=== PATIENT | female | born 1985 | race Caucasian/White ===

== ENCOUNTER 2017-07-08 10:54 | Observation (INO) | payer BC ==
[~2017-07-08] VITALS: Ht 162.6 cm; Wt 74.8 kg
[2017-07-08 11:20] VITALS: BP 143/96; Ht 162.6 cm; Wt 74.8 kg
[2017-07-08 12:08] LABS: PLATELET COUNT, AUTOMATED 182 K/uL (150-450)
--- NOTE | 2017-07-08 13:19 | History & Physical ---
History of Present Illness Age of Patient: 32 : 1 Para or TPAL: 0 EDC per LMP: Jul 31, 2017 Estimated Gestational Age: 36.5 Chief Complaint HYPERTENSION History of Present Illness The patient is a 32 year old 1 para 0 admitted at 36 5/7 weeks estimated gestational age with an estimated date of delivery 07/31/10 . Patient is admitted with complaint of hypertension . No vaginal bleeding. Good movement and occasional contractions. No PIH symptoms. She was evaluated for active labor. She had an uncomplicated course prior to today's blood pressure elevation. Her record was reviewed. History Allergies: Coded Allergies: No Known Drug Allergies (Unverified , 07/08/17) Exam General Exam Cardiovascular: Regular Rate and Rhythm Respiratory: Clear to Auscultation Abdomen: Gravid - Non-Tender Extremities: No Edema Uterine Contractions(Q min): 10 Uterine Contraction Strength: Mild Fetus Heart Tones: 120 FHT Category: I Medical Decision Making Data Points Result Diagram: 07/08/17 1155 07/08/17 1155 Assessment and Plan Problems: (1) Hypertension during Assessment & Plan: Linda denies symptoms of severe preeclampsia, spot check urine suggestive of proteinuria, will check 24 hour urine. will give Celestone for lung maturity as will likely need delivery soon. If symptoms of severe preeclampsia develop will likely need delivery. If preeclampsia confirmed will likely need delivery soon as well. Copies to: BERNIE LUND MD Problem Qualifiers (1) Hypertension during : Pre-existing hypertension in type: unspecified type Trimester: third trimester BERNIE LUND MD Jul 08, 2017 13:18
[2017-07-08] MEDS: BETAMETHASONE/ACETATE 6 MG/1ML IM ONLY SCH (13:44)
[2017-07-08 14:40] VITALS: BP 133/85
[2017-07-08] MEDS ORDERED: PREN-136 (15:27)
[2017-07-08] MEDS ORDERED: CALC-515 PO (15:27)
--- NOTE | 2017-07-08 17:31 | Labor Progress Note ---
Labor Subjective Progress Notes Subjective no headache, vision changes or RUQ pain Feeling Movement?: Yes Labor Pain: Comfortable Neurological: No Headache Eyes: No Visual Disturbances Labor Objective Vital Signs Vital Signs Date Time Temp Pulse Resp B/P (MAP) Pulse Ox O2 Delivery O2 Flow Rate FiO2 07/08/17 14:40 57 133/85 (101) Room Air 07/08/17 11:20 97.7 18 Uterine Contractions(Q min): 20 Uterine Contraction Strength: Mild Fetus Heart Tones: 130 FHT Category: I Other Result Diagram: 07/08/17 1155 07/08/17 1155 Assessment and Plan Problems: (1) Hypertension during Assessment & Plan: no symptoms, BP elevated but not severe, or symptoms of severe preeclampsia. Will recheck labs in am. Problem Qualifiers (1) Hypertension during : Pre-existing hypertension in type: unspecified type Trimester: third trimester BERNIE LUND MD Jul 08, 2017 17:31
[2017-07-08 19:30] VITALS: BP 139/93
[2017-07-09 06:10] LABS: PLATELET COUNT, AUTOMATED 177 K/uL (150-450)
[2017-07-09] MEDS: BETAMETHASONE/ACETATE 6 MG/1ML IM ONLY SCH (13:28)
--- NOTE | 2017-07-09 16:32 | OB/GYN Progress Note ---
OB Subjective Progress Notes Subjective Denies any Headache, visual change, or RUQ pain. Good movement. No contractions. No vaginal bleeding. GI: NEG Nausea, NEG Vomiting, NEG Flatus, NEG Bowel Movement : Voiding Well Pain: Mild, Tolerating PO Pain Meds Neurological: No Headache, No Other Eyes: No Visual Disturbances OB Objective Physical Exam Vital Signs Date Time Temp Pulse Resp B/P (MAP) Pulse Ox O2 Delivery O2 Flow Rate FiO2 07/08/17 19:30 139/93 (108) 07/08/17 14:40 57 Room Air 07/08/17 11:20 97.7 18 Intake and Output 07/10/17 07:00 Intake Total 360 ml Balance 360 ml Intake Oral 360 ml General Appearance: Alert/Awake/No Acute Distress Neurological: No Gross deficits Eyes: Normal Extraocular Movement & Vison, PERRLA ENT: Normal Neck: No Masses Cardiovascular: Normal Rhythm & Peripheral Pulses Respiratory: Clear to Auscultation Extremities: No Edema Psychological: Appropriate Mood & Affect Result Diagram: 07/09/17 0550 07/09/17 1330 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 Recommend delivery at 37 weeks. Pt will schedule IOL for 37-1/7 weeks. Precautions given for Pre- Eclampsia. (3) 36 weeks gestation of Problem Qualifiers (1) Hypertension during : Pre-existing hypertension in type: unspecified type Trimester: third trimester DONTE JOHNSTON DO Jul 09, 2017 16:32
== END 2017-07-09 16:20 | disposition home or self-care (01) ==
LOC: L&D 10:54 → EDSTATUS 11:00 → OB 11:01
PROVIDERS: ADMIT Obstetrics & Gynecology; ATTEND Obstetrics & Gynecology
DX: O13.3 Gestational [pregnancy-induced] hypertension without significant proteinuria, third trimester (principal); O14.93 Unspecified pre-eclampsia, third trimester; Z3A.36 36 weeks gestation of pregnancy
CPT/HCPCS: 36415; 82570; 82575; 83615; 84156; 84550; 85025; 96372; G0378; G0379; J0702; 82040; 82247; 82310; 82374; 82435; 82565; 82947; 84075; 84132; 84155; 84295; 84450; 84460; 84520

== ENCOUNTER 2017-07-10 19:43 | Inpatient (IN) | payer BC ==
[~2017-07-10] VITALS: Ht 162.6 cm; Wt 74.8 kg
[~2017-07-10 19:43] MED LIST: CALC-515 PO; PREN-136
[2017-07-10] MEDS ORDERED: OXYTOCIN 30 UNIT/D5LR 500 ML 500 ML IV PRN (20:01)
[2017-07-10] MEDS ORDERED: FAMOTIDINE(*) 20MG/50ML PREMIX 50 ML IVPB PRN (20:01)
[2017-07-10] MEDS ORDERED: LIDOCAINE/SOD BICARB 8.4% SYR SC PRN (20:05)
[2017-07-10] MEDS ORDERED: ZOLPIDEM TARTRATE 5 MG TAB PO PRN (20:05)
[2017-07-10] MEDS ORDERED: METOCLOPRAMIDE 10 MG/2 ML SDV IVP PRN (20:05)
[2017-07-10] MEDS ORDERED: LIDOCAINE 1% LOCAL 300 MG/30ML INJ PRN (20:05)
[2017-07-10] MEDS ORDERED: cefOXitin/DEX(*) 2GM/50ML PREM 50 ML IVPB PRN (20:05)
[2017-07-10] MEDS ORDERED: fentaNYL CITR 100 MCG/2 ML AMP IVP PRN (20:05)
[2017-07-10] MEDS ORDERED: DINOPROSTONE 10 MG INSERT PV ONE (20:05)
[2017-07-10] MEDS ORDERED: FLUSH 10 ML SYR IVP PRN (20:05)
[2017-07-10 20:29] LABS: PLATELET COUNT, AUTOMATED 164 K/uL (150-450)
[2017-07-10] MEDS ORDERED: ONDANSETRON 4 MG/2 ML VIAL IVP PRN (21:00)
[2017-07-10] MEDS ORDERED: ACETAMINOPHEN 325 MG TAB PO PRN (21:00)
--- NOTE | 2017-07-10 21:38 | History & Physical ---
History of Present Illness Age of Patient: 32 : 1 Para or TPAL: 0 EDC per LMP: Jul 31, 2017 Estimated Gestational Age: 37.0 Chief Complaint Mild preeclampsia History of Present Illness The patient is a 32 year old 1 para 0 admitted at 37.0 weeks estimated gestational age with an estimated date of delivery 07/31/10. Patient is admitted for IOL due to mild preeclampsia diagnosed a few days ago. Mild range pressures without symptoms but significant proteinuria. No vaginal bleeding. Good movement and occasional contractions. She had an uncomplicated course prior to today's blood pressure elevation. Her record was reviewed. Past Medical, Surgical, Family and Obstetric Histories reviewed. Please see AC chart. History Allergies: Coded Allergies: No Known Drug Allergies (Unverified , 07/08/17) Family History: FH: diabetes mellitus Paternal Grandpa (Type 2) Paternal Grandma (Type 2) FH: heart disease Paternal Grandpa (Has had several "heart attacks") FH: hypertension Paternal Grandpa Paternal Grandma No Family History of: FH: asthma FH: stroke Malignant hyperthermia Med Rec Home Meds Reported Medications Vit W-Ca,Fe,FA(<1 mg) ( Vitamins) 1 Each Tablet 07/08/17 Calcium Carbonate (TUMS) 200 Mg Tab.chew, 200 MG PO, TAB.CHEW 07/08/17 Review of Systems All Systems Reviewed/Normal: Yes, Except as Noted Exam General Exam General Apperance: Alert/Awake/No Acute Distress Neuro: No Gross deficits Cardiovascular: Regular Rate and Rhythm Respiratory: No Respiratory Distress Abdomen: Soft, Non-Tender, Non-Distended Integumentary: Skin Intact without Lesions or Rash Psychological: Alert & Oriented X3, Appropriate Mood & Affect Cervical Dialation: 1 Cervical Effacement (%): 50 Cervical Consistency: Firm Cervical Position: Posterior Fetus Heart Tone Variabilty: Moderate FHT Accelerations: 15X15 FHT Category: I Medical Decision Making Data Points Result Diagram: 07/10/17201907/10/172019 VTE Prophylasis: Adult Pharmacological Contraindicati: Pt at Low Risk for VTE Mechanical Contraindications: Pt at Low Risk for VTE 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 Reviewed with pt that we may need additional work after this round, perhaps a silva bulb or cytotec. All will depend on cervical condition in the AM. LIBRADO RANDHAWA MD Jul 10, 2017 21:38
[2017-07-11] MEDS ORDERED: FLUSH 10 ML SYR IVP SCH (01:00)
[2017-07-11] MEDS ORDERED: PENICILLIN G 5 MILLUN/100 ML 100 ML ONE (02:47)
[2017-07-11] MEDS ORDERED: LR(*) 1000 ML BAG 1,000 ML ONE ×2 (02:54→07:12)
[2017-07-11] MEDS ORDERED: hydrALAZINE HCL 20 MG/ML VIAL IVP PRN (03:00)
[2017-07-11] MEDS ORDERED: LABETALOL HCL 20 MG/4 ML SYR IVP PRN (03:00)
[2017-07-11] MEDS ORDERED: LABETALOL HCL 100 MG/20ML VIAL ONE (03:04)
[2017-07-11] MEDS: PENICILLIN G 2.5 MILLUN/100 ML 100 ML IVPB SCH ×2 (08:16→22:49)
[2017-07-11 08:21] LABS: PLATELET COUNT, AUTOMATED 155 K/uL (150-450)
--- NOTE | 2017-07-11 08:35 | Labor Progress Note ---
Labor Subjective Progress Notes Subjective Doing good this morning. Reports feeling occasional contractions. No bleeding or spotting. No headaches or visual changes. Good movement. Feeling Movement?: Yes Vaginal Discharge/Fluid: No Bloody Show, No Clear Fluid, No Bloody Fluid, No Green Tinged Fluid, No Dark Green Fluid, No Mucous, No Small Amount, No Moderate Amount, No Large Amount, No Other Labor Pain: Mild Neurological: No Headache, No Other Eyes: No Visual Disturbances Labor Objective Cervical Dialation: 1 Cervical Effacement (%): 50 Cervical Consistency: Moderate Cervical Position: Mid Station: -2 Presentation: Vertex Uterine Contractions(Q min): 10 Uterine Contraction Strength: Mild UC Resting Tone: Soft Fetus Estimated Weight(grams): 3200 Heart Tones: 135 Heart Tone Variabilty: Moderate FHT Accelerations: 15X15 FHT Decelerations: None FHT Category: I Other Result Diagram: 07/10/17201907/11/17 0805 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 No severe features. Blood pressures remain elevated but no anti-hypertensives given. DONTE JOHNSTON DO Jul 11, 2017 08:35
[2017-07-11] MEDS ORDERED: MISOPROSTOL 25 MCG CAP PV ONE (09:00)
[2017-07-11] MEDS ORDERED: ePHEDrine 25 MG/5 ML DISP.SYR IVP PRN (13:05)
[2017-07-11] MEDS ORDERED: EPIDURAL KEYS XX PRN (13:05)
[2017-07-11] MEDS ORDERED: LIDOCAINE/PF 2% 200MG/10ML AMP 200 MG/10 ML AMPUL EPI PRN (13:05)
[2017-07-11] MEDS ORDERED: LIDO/EPI 2% MPF 1:200,000 20ML EPI PRN (13:05)
[2017-07-11] MEDS ORDERED: BUPIVACAINE 0.5% INJ 30ML VIAL EPI PRN (13:05)
[2017-07-11] MEDS ORDERED: BUPIVACAINE 0.25% MPF INJ EPI PRN (13:05)
[2017-07-11] MEDS ORDERED: fentaNYL CITR 100 MCG/2 ML AMP IT PRN (13:05)
[2017-07-11] MEDS ORDERED: FENTANYL/ROPIVACAINE 100 ML BAG EPI PRN (13:05)
[2017-07-11] MEDS ORDERED: OXYTOCIN 30 UNIT/D5LR 500 ML 500 ML IV PRN (14:03)
[2017-07-11] MEDS: LABETALOL HCL 100 MG/20ML VIAL IVP PRN ×2 (15:23→15:42)
[2017-07-11] MEDS ORDERED: MAGNESIUM SUL* 4 GM/100 ML BAG 100 ML IVPB ONE (16:13)
[2017-07-11] MEDS: MAGNESIUM SULF 20 GM/500 ML IV 500 ML IV SCH (17:00)
[2017-07-11] MEDS ORDERED: LABETALOL HCL 100 MG/20ML VIAL IVP PRN (17:45)
[2017-07-11] MEDS: LR(*) 1000 ML BAG 1,000 ML IV PRN ×2 (18:20→23:25)
--- NOTE | 2017-07-11 18:22 | Labor Progress Note ---
Labor Subjective Progress Notes Subjective Not feeling much for contraction pains. Still denies any headaches or visual changes. Not enjoying how the magnesium is making her feel. Denies any shortness of breath or chest pain. Feeling Movement?: Yes Vaginal Discharge/Fluid: Bloody Show Labor Pain: Mild Neurological: No Headache, No Other Eyes: No Visual Disturbances Labor Objective Vaginal Discharge/Fluid?: Bloody Show Cervical Dialation: 2 Cervical Effacement (%): 50 Cervical Consistency: Moderate Cervical Position: Mid Station: -2 Presentation: Vertex (cervical ripening balloon placed with 80 cc in vaginal and uterine bubs) Uterine Contractions(Q min): 2 Uterine Contraction Strength: Moderate UC Resting Tone: Soft Fetus Heart Tones: 120 Heart Tone Variabilty: Moderate FHT Accelerations: 15X15 FHT Decelerations: None FHT Category: I General Exam General Appearance: Alert/Awake/No Acute Distress ENT: Normal Extremities: Reflexes (2/4) Other Result Diagram: 07/11/17 0807/11/17804 Assessment and Plan 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 Pt has received a total of 120 mg of Labetalol (20,40,40,20). Currently on magnesium sulfate 2gm/hr after a 4 gm bolus. Pt has received Cervidil overnight followed by 25 mcg of cytotec vaginally. No cervical change after both treatments. Pt had Cervical ripening balloon at 1800 with 80 cc in both balloons. Pt is getting an epidural at this time for pain control. Expect balloon to come out in the next few hours. Plan for amniotomy at that time. Continue oxytocin with balloon, with hold at 14 m/U/min. DONTE JOHNSTON DO Jul 11, 2017 18:22
[2017-07-11] MEDS ORDERED: CALCIUM GLUC 10% 100 MG/ML VL IVP PRN (20:00)
--- NOTE | 2017-07-11 20:45 | Labor Progress Note ---
Labor Subjective Progress Notes Subjective Feeling much better after the epidural. Still denies any headaches or visual changes. Feeling Movement?: Yes Vaginal Discharge/Fluid: Bloody Show Labor Pain: Mild Neurological: No Headache, No Other Eyes: No Visual Disturbances Labor Objective Vaginal Discharge/Fluid?: Bloody Show Cervical Dialation: 5 Cervical Effacement (%): 60 Cervical Consistency: Moderate Cervical Position: Mid Station: -2 Presentation: Vertex Uterine Contractions(Q min): 3 Uterine Contraction Strength: Moderate UC Resting Tone: Soft Fetus Heart Tones: 115 Heart Tone Variabilty: Moderate FHT Accelerations: 15X15 FHT Decelerations: None FHT Category: I General Exam General Appearance: Alert/Awake/No Acute Distress ENT: Normal Abdomen: Soft, Non-Tender, Non-Distended : Normal Musculoskeletal: No Weakness/Pain Extremities: Reflexes (2/4) Psychological: Alert & Oriented X3, Appropriate Mood & Affect Other Result Diagram: 07/11/1780407/11/17804 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 Pt has received a total of 120 mg of Labetalol (20,40,40,20). Currently on magnesium sulfate 2gm/hr after a 4 gm bolus. Pt has received Cervidil overnight followed by 25 mcg of cytotec vaginally. No cervical change after both treatments. Pt had Cervical ripening balloon at 1800 with 80 cc in both balloons. Pt is getting an epidural at this time for pain control. Expect balloon to come out in the next few hours. Plan for amniotomy at that time. Continue oxytocin with balloon, with hold at 14 m/U/min. 2045: Update: CRB removed at 2044. Pt 5 cm. Will continue oxytocin. Plan for amniotomy in 1-2 hours. Will repeat labs CBC/CMP with mag level at 9. Continue to do labs q 12 hours. Pt continues on magnesium. No labetalol since epidural (Total 120). Will continue to monitor urine output. DONTE JOHNSTON DO Jul 11, 2017 20:45
[2017-07-11] MEDS ORDERED: FENTANYL/ROPIVACAINE 100ML BAG 100 ML ONE (22:08)
--- NOTE | 2017-07-11 22:32 | Labor Progress Note ---
Labor Subjective Progress Notes Subjective Feeling better with Epidural re-bolus. Denies headache or visual change. pain controlled. Feeling Movement?: Yes Vaginal Discharge/Fluid: Bloody Show Labor Pain: Mild Neurological: No Headache, No Other Eyes: No Visual Disturbances Labor Objective Vaginal Discharge/Fluid?: Bloody Show Cervical Dialation: 5 Cervical Effacement (%): 60 Cervical Consistency: Soft Cervical Position: Anterior Station: -2 Presentation: Vertex Uterine Contractions(Q min): 2 Uterine Contraction Strength: Moderate UC Resting Tone: Soft Fetus Heart Tones: 115 Heart Tone Variabilty: Minimal FHT Accelerations: Present FHT Decelerations: Variable FHT Category: II General Exam General Appearance: Alert/Awake/No Acute Distress ENT: Normal Neck: No Masses Cardiovascular: Normal Rhythm & Peripheral Pulses Abdomen: Soft, Non-Tender, Non-Distended, Gravid - Non-Tender Extremities: Reflexes (2/4) Psychological: Alert & Oriented X3, Appropriate Mood & Affect Other Result Diagram: 07/11/17210907/11/172109 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 Pt has received a total of 120 mg of Labetalol (20,40,40,20). Currently on magnesium sulfate 2gm/hr after a 4 gm bolus. Pt has received Cervidil overnight followed by 25 mcg of cytotec vaginally. No cervical change after both treatments. Pt had Cervical ripening balloon at 1800 with 80 cc in both balloons. Pt is getting an epidural at this time for pain control. Expect balloon to come out in the next few hours. Plan for amniotomy at that time. Continue oxytocin with balloon, with hold at 14 m/U/min. 2045: Update: CRB removed at 2044. Pt 5 cm. Will continue oxytocin. Plan for amniotomy in 1-2 hours. Will repeat labs CBC/CMP with mag level at 9. Continue to do labs q 12 hours. Pt continues on magnesium. No labetalol since epidural (Total 120). Will continue to monitor urine output. 2224: S/P amniotomy. IUPC placed. Increase contraction to adequate contraction pattern. Labs drawn at 2100, CMP, CBC unchanged. Repeat 0900. Urine output greater then 100 cc/hr DONTE JOHNSTON DO Jul 11, 2017 22:32
[2017-07-11] MEDS ORDERED: FAMOTIDINE(*) 20MG/50ML PREMIX 50 ML IVPB PRN (22:40)
[2017-07-11] MEDS ORDERED: CALCIUM CARBONATE 500 MG CHEW PO PRN (22:40)
[2017-07-11] MEDS ORDERED: PENICILLIN G 2.5 MILLUN/100 ML 100 ML IVPB SCH (23:00)
[2017-07-11 23:18] VITALS: BP 156/97; Ht 162.6 cm; Wt 74.8 kg
[2017-07-12] VITALS (16 sets, daily range): BP systolic 116–147; BP diastolic 72–94
[2017-07-12] MEDS: MAGNESIUM SULF 20 GM/500 ML IV 500 ML IV SCH ×3 (02:36→22:55)
[2017-07-12] MEDS ORDERED: CARBOPROST TROMETHAM 250MCG/ML IM ONLY ONE ×2 (03:54→05:30)
[2017-07-12] MEDS ORDERED: CARBOPROST TROMETHAM 250MCG/ML IM ONLY STA (05:19)
[2017-07-12] MEDS ORDERED: MISOPROSTOL 200 MCG TAB PO STA (05:19)
[2017-07-12] MEDS ORDERED: MISOPROSTOL 200 MCG TAB PO ONE (05:30)
[2017-07-12] MEDS ORDERED: LANOLIN OINT 7 GM TUBE TP PRN (05:35)
[2017-07-12] MEDS ORDERED: MEASLES,MUMP,RUBELLA VAC 0.5ML SC ONE (05:35)
[2017-07-12] MEDS ORDERED: GLYCERIN/WITCH HAZEL LEAF 1 PK TOP PRN (05:35)
[2017-07-12] MEDS ORDERED: BENZOCAINE 20% 60 ML BTL TP PRN (05:35)
[2017-07-12] MEDS ORDERED: MAGNESIUM HYDROXIDE* 30ML UDCP PO PRN (05:35)
[2017-07-12] MEDS ORDERED: INFLUENZA VIRUS VAC 0.5 ML SYR IM ONLY ONE (05:35)
[2017-07-12] MEDS ORDERED: HYDROCORTISONE 2.5% CR 30GM TB PR PRN (05:35)
[2017-07-12] MEDS ORDERED: DIPHTH/TETANUS/ACEL. PERTUSSIS IM ONE (05:35)
[2017-07-12] MEDS ORDERED: ACETAMINOPHEN 325 MG TAB PO PRN (05:35)
--- NOTE | 2017-07-12 05:46 | OB Delivery Note ---
Delivery Note Vaginal Delivery Type: Spont. Vaginal Delivery Delivery Date: Jul 12, 2017 Delivery Time: 04:56 Estimated Gestational Age(wks): 37.3 Length of Labor Stage I (hrs): 10 Length of Labor Stage II (hrs): 1.5 Labor Stage III (minutes): 7 Delivery Anesthesia: Epidural Infant Sex: Male Weight (gms): 2890 (6#6oz) Apgars: 1 Minute (8), 5 Minute (9) Repair Needed: 2nd Degree Estimated Blood Loss: 700 Delivery Complications: Hemorrhage (Uterine Atony) Strap Buckler in Attendence: Yes DONTE JOHNSTON DO Jul 12, 2017 05:46
[2017-07-12] MEDS ORDERED: LOPERAMIDE HCL 2 MG CAP PO ONE (06:00)
[2017-07-12] MEDS: ONDANSETRON 4 MG/2 ML VIAL IVP PRN ×2 (06:02→20:55)
--- NOTE | 2017-07-12 06:50 | Procedure Note ---
Anesthetic Placement Note Anesthesia Plan: CSE Permit for Anesthesia Signed: Yes Anesthesia Technique: Lateral Anesthesia Prep: Chlorhexidine Interspace: L 4-5 Local Anesthetic: 1% Lidocaine, 25 Gauge Needle Amount Local - cc's: 3 Anesthesia Needle: 17g Touhy/Schliff Anesthesia Attempts: 1 Loss of Resistance: Normal Saline Depth of PEBBLES (cm): 7 Intrathecal Needle: 27 Gauge Pencan Cerebral Spinal Fluid: Yes, Clear Catheter Insertion (cm): 6 Catheter Type: Hill - Spring Wound Epidural Dressing: Tegaderm, Tape, Adhesive [place] Anesthesia Tray: Lot Number ([id number]), Expiration Date (2018-02-19), Reference Number ([id number]) Anesthesia Medications: Intrathecal Dose: mcg Fentanyl (20), mg Marcaine MPF (2.5), Time (1827) Epidural Test Dose: 1.5 Lido/Epi (1:200,000), Dose - mL (3), Time (1830), Negative Epidural Loading Dose: 0.2% Ropivicaine, With Fentanyl 2mcg/ml, Dose - ml (15) , Time (183), Other (in 5ml increments Q 5 min.) Epidural Infusion: 0.2% Ropivicaine, With Fentanyl 2mcg/ml, Start Time: (1847) Epidural Pump Setting: Bolus Dose - mL (4), Lockout - Minutes (15), Maintenance Rate - mL/hr (8), Maximum per Hour - mL (24) Complications: None Comment: 2215 Catheter became disconnected from hub due to patient movement, catheter prepped with betadine, cut using sterile scissors, new sterile hub attached. Bolus with 10ml of infusion mix, then extra bolus given via epidural pump, infusion resumed. TERESA GARNICA CRNA Jul 11, 2017 19:17
--- NOTE | 2017-07-12 06:53 | Anesthesia OB Pre-Anes Eval ---
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 Hx Anesthesia Reactions: No Hx Family Anesthesia Reaction: No Current Medications: magnesium sulfate Past Complications: gestational hypertention Home Meds Reported Medications Vit W-Ca,Fe,FA(<1 mg) ( Vitamins) 1 Each Tablet 07/08/17 Calcium Carbonate (TUMS) 200 Mg Tab.chew, 200 MG PO, TAB.CHEW 07/08/17 Allergies: Coded Allergies: No Known Drug Allergies (Unverified , 07/08/17) Anesthesia OB ROS Neurological: migraines/headaches Airway Class: l GI ROS: clear liquids, ice chips Last Solids Date: Jul 11, 2017 Last Solids Time: 08:00 ASA Classification: 3 Assessment and Plan Anesthesia Plan: CSE Anesthesia Stop Day: Jul 12, 2017 Anesthesia Stop Time: 05:30 Epidural Catheter Removal: Removed by: (Catheter will be removed later by attending RN at a more convenient time and after lab work confirms platelet level in acceptable range.) TERESA GARNICA CRNA Jul 11, 2017 19:26
[2017-07-12] MEDS: APAP/HYDROCODONE 325/5 TAB PO PRN ×2 (07:17→10:21)
[2017-07-12] MEDS ORDERED: MAGNESIUM SUL* 4 GM/100 ML BAG 100 ML IVPB ONE (07:55)
[2017-07-12] MEDS: DOCUSATE CALCIUM 240 MG CAP PO SCH ×2 (08:22→20:56)
[2017-07-12] MEDS: IBUPROFEN 800 MG TAB PO SCH ×2 (08:22→18:01)
--- NOTE | 2017-07-12 08:34 | OB/GYN Progress Note ---
OB Subjective Progress Notes Subjective Really tired. Denies any headache or visual changes. Pain controlled with PO pain medications. Getting tender from all of the fundal rubs. Denies any fevers or chills. GI: NEG Nausea, NEG Vomiting, NEG Flatus, NEG Bowel Movement : Voiding Well, Vaginal Bleeding, Scant Pain: Mild Neurological: No Headache, No Other Eyes: No Visual Disturbances OB Objective Physical Exam Vital Signs Date Time Temp Pulse Resp B/P (MAP) Pulse Ox O2 Delivery O2 Flow Rate FiO2 07/11/17 23:18 99.1 68 18 156/97 (116) Room Air General Appearance: Alert/Awake/No Acute Distress Neurological: No Gross deficits ENT: Normal Neck: No Masses Cardiovascular: Normal Rhythm & Peripheral Pulses Respiratory: No Respiratory Distress, Clear to Auscultation Abdomen: Soft, Non-Tender, Non-Distended, Fundus Firm : Normal Musculoskeletal: No Weakness/Pain Extremities: Reflexes (2/4) Integumentary: Skin Intact without Lesions or Rash Psychological: Alert & Oriented X3, Appropriate Mood & Affect Result Diagram: 07/11/17210907/11/172109 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 Pt has received a total of 120 mg of Labetalol (20,40,40,20). Currently on magnesium sulfate 2gm/hr after a 4 gm bolus. Pt has received Cervidil overnight followed by 25 mcg of cytotec vaginally. No cervical change after both treatments. Pt had Cervical ripening balloon at 1800 with 80 cc in both balloons. Pt is getting an epidural at this time for pain control. Expect balloon to come out in the next few hours. Plan for amniotomy at that time. Continue oxytocin with balloon, with hold at 14 m/U/min. 2045: Update: CRB removed at 2044. Pt 5 cm. Will continue oxytocin. Plan for amniotomy in 1-2 hours. Will repeat labs CBC/CMP with mag level at 9. Continue to do labs q 12 hours. Pt continues on magnesium. No labetalol since epidural (Total 120). Will continue to monitor urine output. 2224: S/P amniotomy. IUPC placed. Increase contraction to adequate contraction pattern. Labs drawn at 2100, CMP, CBC unchanged. Repeat 0900. Urine output greater then 100 cc/hr 0830: /2*MLL, Delivery at 0456. Uterine Atony 700 cc EBL. Received Hemabate X 1 and Misoprostol 400 mcg PO. Pt will continue Magnesium Sulfate for 24 hours. Labs due at 9 and 2100. DONTE JOHNSTON DO Jul 12, 2017 08:34
--- NOTE | 2017-07-12 09:28 | OB/GYN Progress Note ---
OB Subjective Progress Notes Subjective Ms. Conner reports feels hot, otherwise well. Denies CP/SOB. Denies SPARROW, RUQ pain, nausea/emesis. No other concerns. GI: NEG Nausea, NEG Vomiting, NEG Flatus, NEG Bowel Movement : Voiding Well, Vaginal Bleeding, Moderate Pain: Mild Neurological: No Headache, No Other Eyes: No Visual Disturbances OB Objective Physical Exam Vital Signs Date Time Temp Pulse Resp B/P (MAP) Pulse Ox O2 Delivery O2 Flow Rate FiO2 07/12/17 09:15 61 16 135/86 (102) 99 Room Air 07/12/17 08:15 97.6 Intake and Output 07/13/17 07:00 Output Total 1675 ml Balance -1675 ml Output Urine Total 1675 ml General Appearance: Alert/Awake/No Acute Distress Neurological: No Gross deficits Eyes: Normal Extraocular Movement & Vison ENT: Normal Neck: No Masses Cardiovascular: Normal Rhythm & Peripheral Pulses, Regular Rate and Rhythm Respiratory: No Respiratory Distress, Clear to Auscultation Abdomen: Soft, Non-Tender, Non-Distended, Fundus Firm, Non-Tender : Normal Musculoskeletal: No Weakness/Pain Extremities: No Cyanosis,Clubbing or Edema, Reflexes (2/4) Integumentary: Skin Intact without Lesions or Rash Psychological: Alert & Oriented X3, Appropriate Mood & Affect Result Diagram: 07/12/17 0857 07/11/172109 Assessment and Plan Problems: (1) Pre-eclampsia during in third trimester, antepartum Status: Resolved (2) care and examination of lactating mother Status: Acute Assessment & Plan: 32yo P1 PPD 0 s/p , reports overall feeling well. Routine post- care. Encourage . (3) hemorrhage, delivered, current hospitalization Status: Acute Assessment & Plan: Uterine tone good. Bleeding appropriate. Will monitor h/h and symptoms. (4) Pre-eclampsia Status: Acute Assessment & Plan: No e/o Mg toxicity or worsening PEC. Will continue to monitor closely with symptoms, blood pressures, ins/outs and labwork. Problem Qualifiers (1) Pre-eclampsia: Trimester: third trimester Qualified Codes: O14.93 - Unspecified pre- eclampsia, third trimester DIONI CRAIG MD Jul 12, 2017 09:28
[2017-07-12] MEDS ORDERED: OXYTOCIN 30 UNIT/D5LR 500 ML 500 ML IV PRN (11:05)
--- NOTE | 2017-07-12 14:24 | DELIVERY NOTE ---
DELIVERY DATE: July 12, 2017 SURGEON: Mike Zamora DO ANESTHESIA: Epidural. PREOPERATIVE DIAGNOSIS 1. 32-year-old 1, para 0 at 37 and 3/7 weeks gestation. 2. Preeclampsia with severe features. POSTOPERATIVE DIAGNOSIS 1. 32-year-old 1, para 0 at 37 and 3/7 weeks gestation. 2. Preeclampsia with severe features. 3. Delivered. 4. Uterine atony. PROCEDURE Spontaneous vaginal delivery with repair of second-degree midline laceration. FINDINGS Liveborn male at 0456 with Apgars of 8 and 9, weighing 2890 grams, 6 pounds, 6 ounces, 3-vessel cord, intact placenta, over a second-degree midline laceration. EBL 700 mL. PATHOLOGY None. COMPLICATIONS Uterine atony. Did receive oxytocin bolus, 0.25 mg of Hemabate and 400 mcg of sublingual misoprostol. CONDITION Stable x 2, mother and infant to remain in LDRP. COUNTS Correct x 2 for all needles, laps, sponges and instruments. LABOR SUMMARY Patient is a 32-year-old 1 who earlier in the week had underwent 24- hour labs secondary to elevated blood pressures. 24-hour urine protein showed 640 mg of protein. Patient continued to have blood pressures greater than 140/ 90, and was counseled that secondary to having blood pressures and proteinuria, that it would be in her best interest to proceed with indicated delivery at 37 weeks. Patient was given betamethasone 24 hours apart when she was in her 36 week secondary to elevated blood pressures. Upon arrival, patient was 1 cm. She did receive Cervidil for cervical ripening. The following morning, she was still 1 cm. She did receive an additional 25 mcg of Cytotec for cervical ripening. Shortly thereafter, the patient was noted to be dmitri irregularly. She was started on oxytocin. Discussed with patient the possibility of using a cervical ripening balloon, and patient agreed. She did receive 100 mcg of fentanyl prior to the cervical ripening balloon. Cervical ripening balloon was easily placed with 80 mL of normal saline placed in both balloons. The patient then requested epidural for pain control shortly after balloon placement. About an hour and a half after the epidural was given, the balloon spontaneously was already in the vagina and was easily removed with gentle traction. About an hour after that, the patient underwent amniotomy with clear amniotic fluid. Throughout the labor course, the patient did not initially require magnesium, but in the afternoon did have blood pressures that were greater than 160/110. She did receive a total of 120 mg of labetalol, given in dosages of 20, 40, 40 and 20. After the epidural, patient no longer had further blood pressure issues. With the amniotomy performed, oxytocin was continued, and the patient continued to progress spontaneously, eventually was noted to be complete, complete and +1 station. A few trial pushes were attempted, and the patient did fantastic, and the delivery team was called and assembled. DELIVERY SUMMARY Patient was placed in the dorsal lithotomy position, prepped and draped in the usual sterile manner. Upon maternal pushing, the 's head delivered in a controlled manner followed by the anterior shoulder with gentle downward motion , the posterior shoulder with gentle upward motion. The remainder of the 's body delivered spontaneously. Mouth and nose were bulb suctioned. The was placed on maternal abdomen, where vigorous cleaning and drying continued. After 2-1/2 minutes, the cord was clamped x 2 and cut by the ' s father. At this point, cord blood gases were obtained. The placenta delivered with gentle cord traction. At this point, oxytocin was infused to help with uterine tone. Uterus remained boggy. A bimanual massage was performed. After a couple of minutes, bimanual massage with not much change in tone, Hemabate 0.25 mg was given in the left lower extremity. Shortly after Hemabate was given, the patient was also 400 mcg of misoprostol sublingually to help with uterine tone. After a few more minutes on bimanual massage, the uterus was noted to be firm, and the attention was then turned to the laceration. Inspection of the perineum, vagina, cervix and labia noted that there was a second-degree midline laceration. This laceration was repaired with 3-0 Vicryl in a running manner. With laceration repaired, it was hemostatic. The patient was cleaned, and Lindquist catheter was replaced secondary to being on magnesium and the importance of strict Is and Os, and the patient was then allowed to continue to oreilly with her . YUE
--- NOTE | 2017-07-12 15:01 | Anesthesia Post Eval Note ---
Anesthesia Post Eval Note Stable, afebrile Pt able to participate in Eval: Yes Cardiovascular Status: Satisfactory Respiratory Status: Satisfactory Pain Managment: Satisfactory PO Nausea/Vomiting: Satisfactory Temperature Management: Satisfactory Mental Status: Satisfactory, Alert, Oriented X3 Post-Op Hydration Status: Satisfactory, Tolerating PO Well Anesthesia Type: CSE Anesthesia Tolerance: Tolerated well, effective labor analgesia, vaginal delivery. TERESA GARNICA CRNA Jul 12, 2017 15:00
--- NOTE | 2017-07-12 18:14 | OB/GYN Progress Note ---
OB Subjective Progress Notes Subjective Patient reports feels well overall. Still feels hot. No SPARROW, no vision changes, no RUQ pain or nausea/emesis. Bleeding mild. GI: NEG Nausea, NEG Vomiting, NEG Flatus, NEG Bowel Movement : Voiding Well (catheter in place) Pain: Mild Neurological: No Headache, No Other Eyes: No Visual Disturbances OB Objective Physical Exam Vital Signs Date Time Temp Pulse Resp B/P (MAP) Pulse Ox O2 Delivery O2 Flow Rate FiO2 07/12/17 18:09 59 16 124/78 (93) 97 Room Air 07/12/17 15:17 98.4 Intake and Output 07/13/17 07:00 Intake Total 750 ml Output Total 5745 ml Balance -4995 ml Intake IV Total 750 ml Output Urine Total 5745 ml General Appearance: Alert/Awake/No Acute Distress Neurological: No Gross deficits Eyes: Normal Extraocular Movement & Vison ENT: Normal Neck: No Masses Cardiovascular: Normal Rhythm & Peripheral Pulses, Regular Rate and Rhythm Respiratory: No Respiratory Distress, Clear to Auscultation Abdomen: Soft, Non-Tender, Non-Distended, Fundus Firm, Non-Tender : Normal Musculoskeletal: No Weakness/Pain Extremities: No Cyanosis,Clubbing or Edema, Reflexes (2/4) Integumentary: Skin Intact without Lesions or Rash Psychological: Alert & Oriented X3, Appropriate Mood & Affect Result Diagram: 07/12/17 0857 07/12/17 0857 Assessment and Plan Problems: (1) Pre-eclampsia during in third trimester, antepartum Status: Resolved (2) care and examination of lactating mother Status: Acute Assessment & Plan: 32yo P1 PPD 0 s/p , reports overall feeling well. Routine post- care. Encourage . (3) hemorrhage, delivered, current hospitalization Status: Acute Assessment & Plan: Uterine tone good. Bleeding appropriate. Will monitor h/h and symptoms. (4) Pre-eclampsia Status: Acute Assessment & Plan: No e/o Mg toxicity or worsening PEC. Will continue to monitor closely with symptoms, blood pressures, ins/outs and labwork. Problem Qualifiers (1) Pre-eclampsia: Trimester: third trimester Qualified Codes: O14.93 - Unspecified pre- eclampsia, third trimester DIONI CRAIG MD Jul 12, 2017 18:14
[2017-07-12 21:23] LABS: PLATELET COUNT, AUTOMATED 162 K/uL (150-450)
[2017-07-12] MEDS ORDERED: NS 3% IV ONE (23:50)
[2017-07-13] VITALS (9 sets, daily range): BP systolic 102–126; BP diastolic 60–78
--- NOTE | 2017-07-13 00:05 | OB/GYN Progress Note ---
OB Subjective Progress Notes Subjective Patient reports feels overall well, no headache, no vision changes, no RUQ pain. Awake and alert. GI: POS Flatus, NEG Nausea, NEG Vomiting, NEG Bowel Movement : Voiding Well (catheter in place), Vaginal Bleeding, Scant Pain: Mild Neurological: No Headache, No Other Eyes: No Visual Disturbances OB Objective Physical Exam Vital Signs Date Time Temp Pulse Resp B/P (MAP) Pulse Ox O2 Delivery O2 Flow Rate FiO2 07/12/17 22:20 64 12 126/84 (98) 95 Room Air 07/12/17 21:03 97.2 Intake and Output 07/13/17 07:00 Intake Total 750 ml Output Total 6670 ml Balance -5920 ml Intake IV Total 750 ml Output Urine Total 6670 ml General Appearance: Alert/Awake/No Acute Distress Neurological: No Gross deficits Eyes: Normal Extraocular Movement & Vison ENT: Normal Neck: No Masses Cardiovascular: Normal Rhythm & Peripheral Pulses, Regular Rate and Rhythm Respiratory: No Respiratory Distress, Clear to Auscultation Abdomen: Soft, Non-Tender, Non-Distended, Fundus Firm, Non-Tender : Normal Musculoskeletal: No Weakness/Pain Extremities: No Cyanosis,Clubbing or Edema, Reflexes (2/4) Integumentary: Skin Intact without Lesions or Rash Psychological: Alert & Oriented X3, Appropriate Mood & Affect Result Diagram: 07/12/17210407/12/172104 Assessment and Plan Problems: (1) Pre-eclampsia during in third trimester, antepartum Status: Resolved (2) care and examination of lactating mother Status: Acute Assessment & Plan: 32yo P1 PPD 0 s/p , reports overall feeling well. Routine post- care. Encourage . (3) hemorrhage, delivered, current hospitalization Status: Acute Assessment & Plan: Uterine tone good. Bleeding appropriate. Will monitor h/h and symptoms. (4) Pre-eclampsia Status: Acute Assessment & Plan: No e/o Mg toxicity or worsening PEC. Will continue to monitor closely with symptoms, blood pressures, ins/outs and labwork. (5) Acute hyponatremia Status: Acute Assessment & Plan: Most recent sodium 124 from 130, likely related to IV hydration in setting of pre-eclampsia. Patient is asymptomatic. Will correct hyponatremia, given acute nature and asymptomatic with 50cc 3% saline ( hypertonic saline). Problem Qualifiers (1) Pre-eclampsia: Trimester: third trimester Qualified Codes: O14.93 - Unspecified pre- eclampsia, third trimester DIONI CRAIG MD Jul 13, 2017 00:05
[2017-07-13] MEDS: IBUPROFEN 800 MG TAB PO SCH ×3 (00:37→16:42)
[2017-07-13] MEDS: NS(*) 0.9% 1000 ML BAG 1,000 ML IV SCH ×2 (00:45→09:05)
[2017-07-13] MEDS ORDERED: NS(*) 0.9% 1000 ML BAG 1,000 ML ONE (00:47)
[2017-07-13] MEDS ORDERED: NS 3% IV ONE (01:30)
--- NOTE | 2017-07-13 04:32 | OB/GYN Progress Note ---
OB Subjective Progress Notes Subjective Patient feels well overall. No SPARROW, vision changes, no RUQ pain, no nausea/ emesis. . GI: POS Flatus, NEG Nausea, NEG Vomiting, NEG Bowel Movement : Voiding Well, Vaginal Bleeding, Scant Pain: Mild, Tolerating PO Pain Meds Neurological: No Headache, No Other Eyes: No Visual Disturbances OB Objective Physical Exam Vital Signs Date Time Temp Pulse Resp B/P (MAP) Pulse Ox O2 Delivery O2 Flow Rate FiO2 07/13/17 04:10 60 14 93 Room Air 07/13/17 03:00 110/69 (83) 07/13/17 00:45 97.5 General Appearance: Alert/Awake/No Acute Distress Neurological: No Gross deficits Eyes: Normal Extraocular Movement & Vison ENT: Normal Neck: No Masses Cardiovascular: Normal Rhythm & Peripheral Pulses, Regular Rate and Rhythm Respiratory: No Respiratory Distress, Clear to Auscultation Abdomen: Soft, Non-Tender, Non-Distended, Fundus Firm, Non-Tender : Normal Musculoskeletal: No Weakness/Pain Extremities: No Cyanosis,Clubbing or Edema, Reflexes (2/4) Integumentary: Skin Intact without Lesions or Rash Psychological: Alert & Oriented X3, Appropriate Mood & Affect Result Diagram: 07/12/17 2105 07/13/17 0346 Assessment and Plan Problems: (1) Pre-eclampsia during in third trimester, antepartum Status: Resolved (2) care and examination of lactating mother Status: Acute Assessment & Plan: 32yo P1 PPD 0 s/p , reports overall feeling well. Routine post- care. Encourage . (3) hemorrhage, delivered, current hospitalization Status: Acute Assessment & Plan: Uterine tone good. Bleeding appropriate. Will monitor h/h and symptoms. (4) Pre-eclampsia Status: Acute Assessment & Plan: No e/o Mg toxicity or worsening PEC. Will continue to monitor closely with symptoms, blood pressures, ins/outs and labwork. Plan to discontinue MgSo4 at 5:30am, 24 hours pp. (5) Acute hyponatremia Status: Acute Assessment & Plan: Sodium got as low as 120, now 125 after two 50cc boluses of 3% saline, and 1 100cc bolus of 3% saline. Patient is asymptomatic. Will give one more 50cc bolus of 3% saline and then continue to monitor levels over the course of the day. Problem Qualifiers (1) Pre-eclampsia: Trimester: third trimester Qualified Codes: O14.93 - Unspecified pre- eclampsia, third trimester DIONI CRAIG MD Jul 13, 2017 04:32
[2017-07-13] MEDS: MAGNESIUM SULF 20 GM/500 ML IV 500 ML IV SCH (07:05)
[2017-07-13] MEDS: DOCUSATE CALCIUM 240 MG CAP PO SCH ×2 (09:00→20:52)
--- NOTE | 2017-07-13 10:38 | OB/GYN Progress Note ---
OB Subjective Progress Notes Subjective Patient reports feels much better off of MgSO4. She is up to a chair , able to ambulate without difficulty. Denies SPARROW, scotomata, N/V, RUQ pain. Would like her silva catheter removed. GI: POS Flatus, NEG Nausea, NEG Vomiting, NEG Bowel Movement : Vaginal Bleeding, Scant Pain: Mild, Tolerating PO Pain Meds Neurological: No Headache, No Other Eyes: No Visual Disturbances OB Objective Physical Exam Vital Signs Date Time Temp Pulse Resp B/P (MAP) Pulse Ox O2 Delivery O2 Flow Rate FiO2 07/13/17 09:00 Room Air 07/13/17 08:07 98.4 63 14 102/62 (21) 98 General Appearance: Alert/Awake/No Acute Distress Neurological: No Gross deficits Eyes: Normal Extraocular Movement & Vison ENT: Normal Neck: No Masses Cardiovascular: Normal Rhythm & Peripheral Pulses, Regular Rate and Rhythm Respiratory: No Respiratory Distress, Clear to Auscultation Abdomen: Soft, Non-Tender, Non-Distended, Fundus Firm, Non-Tender : Normal Musculoskeletal: No Weakness/Pain Extremities: No Cyanosis,Clubbing or Edema, Reflexes (2/4) Integumentary: Skin Intact without Lesions or Rash Psychological: Alert & Oriented X3, Appropriate Mood & Affect Result Diagram: 07/13/17 0538 07/13/17 0802 Assessment and Plan Problems: (1) Pre-eclampsia during in third trimester, antepartum Status: Resolved (2) care and examination of lactating mother Status: Acute Assessment & Plan: 32yo P1 PPD 1 s/p , reports overall feeling well. Up to shower today, ambulate. going well. Routine PP care. (3) hemorrhage, delivered, current hospitalization Status: Resolved Assessment & Plan: Patient's bleeding is normal, h/h stable. PP hemorrhage resolved. (4) Pre-eclampsia Status: Acute Assessment & Plan: Ms. Conner is now off of MgSO4. Asymptomatic. Diuresing well. Blood pressures stable. Will continue to monitor. (5) Acute hyponatremia Status: Acute Assessment & Plan: Sodium level corrected to 129. Will stop all IV fluids and patient is tolerating PO, off of MgSO4. Will repeat BMP at noon, if stable will discontinue monitoring. Problem Qualifiers (1) Pre-eclampsia: Trimester: third trimester Qualified Codes: O14.93 - Unspecified pre- eclampsia, third trimester DIONI CRAIG MD Jul 13, 2017 10:38
[2017-07-13] MEDS ORDERED: LOR5/325 PO (10:50)
[2017-07-13] MEDS ORDERED: IBUP800T37 PO (10:50)
[2017-07-13] MEDS ORDERED: DOCUSATE CALCIUM 240 MG CAP PO ONE (12:35)
[2017-07-14 00:01] VITALS: BP 125/70
[2017-07-14] MEDS: DOCUSATE CALCIUM 240 MG CAP PO SCH ×2 (00:33→09:54)
[2017-07-14] MEDS: IBUPROFEN 800 MG TAB PO SCH ×2 (00:33→09:54)
[2017-07-14] MEDS ORDERED: NS 3% IV ONE (00:50)
[2017-07-14 05:02] VITALS: BP 129/85
[2017-07-14 08:19] VITALS: BP 149/78
[2017-07-14] MEDS ORDERED: DOCU240C67 PO (08:58)
--- NOTE | 2017-07-14 09:02 | OB/GYN Progress Note ---
OB Subjective Progress Notes Subjective Mrs. Conner denies SPARROW, scotomata, RUQ pain, N/V. going well. Bleeding minimal. Meeting all discharge criteria. GI: POS Flatus, NEG Nausea, NEG Vomiting, NEG Bowel Movement : Voiding Well, Vaginal Bleeding, Scant Pain: Mild, Tolerating PO Pain Meds Neurological: No Headache, No Other Eyes: No Visual Disturbances OB Objective Physical Exam Vital Signs Date Time Temp Pulse Resp B/P (MAP) Pulse Ox O2 Delivery O2 Flow Rate FiO2 07/14/17 08:19 99.4 16 149/78 (101) Room Air 07/14/17 05:02 66 07/13/17 08:07 98 General Appearance: Alert/Awake/No Acute Distress Neurological: No Gross deficits Eyes: Normal Extraocular Movement & Vison ENT: Normal Neck: No Masses Cardiovascular: Normal Rhythm & Peripheral Pulses, Regular Rate and Rhythm Respiratory: No Respiratory Distress, Clear to Auscultation Abdomen: Soft, Non-Tender, Non-Distended, Fundus Firm, Non-Tender : Normal Musculoskeletal: No Weakness/Pain Extremities: No Cyanosis,Clubbing or Edema, Reflexes (2/4) Integumentary: Skin Intact without Lesions or Rash Psychological: Alert & Oriented X3, Appropriate Mood & Affect Result Diagram: 07/13/17 0538 07/13/17 1158 Assessment and Plan Problems: (1) Pre-eclampsia during in third trimester, antepartum Status: Resolved (2) care and examination of lactating mother Status: Acute Assessment & Plan: 32yo P1 PPD 2 s/p , reports overall feeling well. Meeting all discharge criteria. Will allow discharge home today with plans for BP check next week and 6 week pp follow-up. (3) hemorrhage, delivered, current hospitalization Status: Resolved Assessment & Plan: Patient's bleeding is normal, h/h stable. PP hemorrhage resolved. (4) Pre-eclampsia Status: Acute Assessment & Plan: Asymptomatic, overall BP in mild range and not requiring medication. Reviewed ss/sx of worsening PEC at length with patient and discussed risk of post- pre-eclampsia. Will allow discharge home with plans for BP check next week. (5) Acute hyponatremia Status: Resolved Assessment & Plan: Sodium level corrected to 129. Now off of all IV fluids and diuresing well. Hyponatremia resolved. Problem Qualifiers (1) Pre-eclampsia: Trimester: third trimester Qualified Codes: O14.93 - Unspecified pre- eclampsia, third trimester DIONI CRAIG MD Jul 14, 2017 09:02
--- NOTE | 2017-07-14 09:03 | OB/GYN Discharge Summary ---
Discharge Summary Reason for Hosp/Final Diag: (1) Pre-eclampsia during in third trimester, antepartum Status: Resolved (2) care and examination of lactating mother Status: Acute Hospital Course & Plan: 32yo P1 PPD 2 s/p , reports overall feeling well. Meeting all discharge criteria. Will allow discharge home today with plans for BP check next week and 6 week pp follow-up. (3) hemorrhage, delivered, current hospitalization Status: Resolved Hospital Course & Plan: Patient's bleeding is normal, h/h stable. PP hemorrhage resolved. (4) Pre-eclampsia Status: Acute Hospital Course & Plan: Asymptomatic, overall BP in mild range and not requiring medication. Reviewed ss/sx of worsening PEC at length with patient and discussed risk of post- pre-eclampsia. Will allow discharge home with plans for BP check next week. (5) Acute hyponatremia Status: Resolved Hospital Course & Plan: Sodium level corrected to 129. Now off of all IV fluids and diuresing well. Hyponatremia resolved. Lates Vital Signs Vital Signs Date Time Temp Pulse Resp B/P (MAP) Pulse Ox O2 Delivery O2 Flow Rate FiO2 07/14/17 08:19 99.4 16 149/78 (101) Room Air 07/14/17 05:02 66 07/13/17 08:07 98 Weight (Pounds): 165 Result Diagram: 07/13/17 0538 07/13/17 1158 Condition: Improved Discharge: Home Home Meds Active Scripts Docusate Calcium (DOCUSATE CALCIUM) 240 Mg Capsule, 240 MG PO BID for 30 Days, # 60 CAPSULE 1 Refill Prov:DIONI CRAIG MD 07/14/17 Ibuprofen (IBUPROFEN) 800 Mg Tablet, 800 MG PO Q8H for 14 Days, #60 TAB 1 Refill Prov:DIONI CRAIG MD 07/13/17 Hydrocodone Bit/Acetaminophen (HYDROCODON-ACETAMINOPHEN 5-325) 1 Each Tablet, 1- 2 EACH PO Q4H Y for PAIN for 14 Days, #30 TAB Prov:DIONI CRAIG MD 07/13/17 Reported Medications Vit W-Ca,Fe,FA(<1 mg) ( Vitamins) 1 Each Tablet 07/08/17 Calcium Carbonate (TUMS) 200 Mg Tab.chew, 200 MG PO, TAB.CHEW 07/08/17 [facility] [phone] Follow up in: 6 wks PP or PO, 3-4 days Discharge Diet: As Tolerates Discharge Activity: As Tolerates, Pelvic Rest Problem Qualifiers (1) Pre-eclampsia: Trimester: third trimester Qualified Codes: O14.93 - Unspecified pre- eclampsia, third trimester DIONI CRAIG MD Jul 14, 2017 09:03
== END 2017-07-14 10:15 | disposition home or self-care (01) | DRG 774 ==
LOC: OB 19:43 → OBSVTOIN 19:43
PROVIDERS: ADMIT Obstetrics & Gynecology; ATTEND Obstetrics & Gynecology
PROC: 3E0P7VZ Introduction of Hormone into Female Reproductive, Via Natural or Artificial Opening (ICD-10-PCS; 2017-07-10)
PROC: 10907ZC Drainage of Amniotic Fluid, Therapeutic from Products of Conception, Via Natural or Artificial Opening (ICD-10-PCS; 2017-07-11)
PROC: 0U7C7ZZ Dilation of Cervix, Via Natural or Artificial Opening (ICD-10-PCS; 2017-07-11)
PROC: 3E033VJ Introduction of Other Hormone into Peripheral Vein, Percutaneous Approach (ICD-10-PCS; 2017-07-11)
PROC: 10E0XZZ Delivery of Products of Conception, External Approach (ICD-10-PCS; principal; 2017-07-12)
PROC: 0KQM0ZZ Repair Perineum Muscle, Open Approach (ICD-10-PCS; 2017-07-12)
DX: O14.14 Severe pre-eclampsia complicating childbirth (principal); O72.1 Other immediate postpartum hemorrhage; E87.1 Hypo-osmolality and hyponatremia; O99.824 Streptococcus B carrier state complicating childbirth; O70.1 Second degree perineal laceration during delivery; O99.285 Endocrine, nutritional and metabolic diseases complicating the puerperium; Z3A.37 37 weeks gestation of pregnancy; Z37.0 Single live birth
CPT/HCPCS: 36415; 81001; 82040; 82247; 82310; 82374; 82435; 82565; 82947; 83615; 83735; 84075; 84132; 84155; 84295; 84450; 84460; 84520; 84550; 85025; 85027; 86850; 86900; 86901; C1726; J2405; J2540; J2590; J3010; J3475; J3490; J7030; J7120; S0020